=== PATIENT | male | born 1960 | race Caucasian/White ===

== ENCOUNTER 2021-02-05 12:14 | Observation (INO) | payer MEDICARE, BC ==
--- NOTE | 2021-02-05 12:57 | EDM.PDOC ---
ED HPI GENERAL MEDICAL PROBLEM - General Chief Complaint: Respiratory Problem Stated Complaint: SOB Time Seen by Provider: 02/05/21 12:40 Source of Information: Reports: Patient, Old Records, RN History Limitations: Reports: No Limitations - History of Present Illness INITIAL COMMENTS - FREE TEXT/NARRATIVE: 60 yo male is referred to the ER from the local [facility] for chest pressure and DORSEY. Sx's for a few days. No calf pain or LE edema. No cough or fever. No pHx of CAD or PE. Does have myesthenia gravis and is currently having his prednisone tapered. Has anxiety. Onset: Gradual Duration: Day(s):, Getting Worse Location: Reports: Chest Quality: Reports: Pressure Severity: Mild Improves with: Reports: Rest Worsens with: Reports: Movement (exertion) Context: Reports: Other (See HPI) Associated Symptoms: Reports: Chest Pain, Shortness of Breath (with exertion) Treatments TRA[employer]ER [employer]ER: Reports: Other (see below) (none) - Related Data Allergies Allergy/AdvReac Type Severity Reaction Status Date / Time No Known Allergies Allergy Verified 02/05/21 12:37 Home Meds: Home Meds Multivitamin with Minerals [Multiple Vitamin] 1 tab PO DAILY 08/25/13 [History] [place]-3 Fatty Acids [[place]-3] 1,000 mg PO DAILY 08/25/13 [History] PARoxetine [Paxil] 10 mg PO DAILY 08/25/13 [History] PEG 400/Propylene Glycol [Systane 0.4-0.3%] 1 drop EYEBOTH BID PRN 08/25/13 [History] Urea [Urea 40% Crm] 28.35 gm TOP DAILY 08/25/13 [History] atorvaSTATin [Lipitor] 10 mg PO BEDTIME 08/25/13 [History] ALPRAZolam [Xanax] 1 mg PO BID PRN 09/11/16 [History] traZODone 50 mg PO BEDTIME 09/11/16 [History] Pyridostigmine [place] 60 mg PO DAILY 02/05/21 [History] predniSONE [Prednisone] 25 mg PO DAILY 02/05/21 [History] Social & Family History - Tobacco Use Tobacco Use Status *Q: Never Tobacco User - Recreational Drug Use Recreational Drug Use: No ED ROS GENERAL - Review of Systems Review Of Systems: See Below Constitutional: Reports: No Symptoms. Denies: Fever HEENT: Reports: No Symptoms Respiratory: Reports: No Symptoms Cardiovascular: Reports: Chest Pain (pressure anteriorly), Dyspnea on Exertion. Denies: Edema, Lightheadedness, Orthopnea, Palpitations GI/Abdominal: Denies: Black Stool, Bloody Stool, Hematemesis, Hematochezia, Melena, Nausea : Reports: No Symptoms, Other (urine not dark) Musculoskeletal: Reports: No Symptoms Skin: Denies: Diaphoresis ED EXAM, GENERAL - Physical Exam Exam: See Below Exam Limited By: No Limitations General Appearance: Alert, WD/WN, No Apparent Distress Eye Exam: Bilateral Eye: Normal Inspection (no conjunctival pallor) Ears: Normal External Exam, Normal Canal, Hearing Grossly Normal Ear Exam: Bilateral Ear: Auricle Normal, Canal Normal Nose: Normal Inspection, No Blood Throat/Mouth: Normal Inspection, Normal Lips, Normal Oropharynx, Normal Voice, No Airway Compromise Head: Atraumatic, Normocephalic Neck: Normal Inspection Respiratory/Chest: No Respiratory Distress, Lungs Clear, Normal Breath Sounds, No Accessory Muscle Use, Chest Non-Tender Cardiovascular: Regular Rate, Rhythm, No Edema. No: Diastolic Murmur, Systolic Murmur GI/Abdominal: Soft, Non-Tender Back Exam: Normal Inspection. No: CVA Tenderness (R), CVA Tenderness (L) Extremities: Normal Inspection, Normal Range of Motion, Non-Tender, No Pedal Edema Neurological: Alert, Oriented, CN II-XII Intact, Normal Cognition, No Motor/Sensory Deficits Psychiatric: Normal Affect, Normal Mood Skin Exam: Warm, Dry, Intact, Normal Color, No Rash #1 Interpretation EKG Date: 02/05/21 Time: 13:15 Rhythm: NSR Rate (Beats/Min): 77 [place]: Normal P-Wave: Present QRS: Normal ST-T: Normal QT: Normal Comparison: NA - No Prior EKG Course - Vital Signs Text/Narrative:: Dr. Raza called @ 1428h Last Recorded V/S: Last Vital Signs Temp 36.2 C 02/05/21 12:36 Pulse 96 02/05/21 16:48 Resp 18 02/05/21 14:56 BP 106/82 02/05/21 14:56 Pulse Ox 98 02/05/21 16:48 - Orders/Labs/Meds Orders: Active Orders 24 hr Category Date Time Status Iopamidol [Isovue-370 (76%)] Med 02/05/21 14:15 Active 100 ml IV . DIRECTED Sodium Chloride 0.9% [Saline Flush] Med 02/05/21 13:38 Active 10 ml FLUSH ASDIRECTED PRN Sodium Chloride 0.9% [Saline Flush] Med 02/05/21 14:01 Active 10 ml FLUSH ONETIME PRN Saline Lock Insert [OM.PC] Routine Oth 02/05/21 13:38 Ordered EKG 12 Lead [EK] Routine Ther 02/05/21 12:51 Ordered Medication Orders Iopamidol (Iopamidol 755 Mg/Ml 100 Ml Bottle) 100 ml IV . DIRECTED [facility] Last Admin: 02/05/21 14:21 Dose: 100 ml Documented by: ILYA Sodium Chloride (Sodium Chloride 0.9% 10 Ml Syringe) 10 ml FLUSH ASDIRECTED PRN PRN Reason: Keep Vein Open Last Admin: 02/05/21 13:44 Dose: 10 ml Documented by: CORBIN Sodium Chloride (Sodium Chloride 0.9% 10 Ml Syringe) 10 ml FLUSH ONETIME PRN PRN Reason: PER RADIOLOGY PROTOCOL Last Admin: 02/05/21 14:20 Dose: 10 ml Documented by: ILYA Labs: Laboratory Tests 02/05/21 02/05/21 02/05/21 Range/Units 12:54 12:54 13:08 D-Dimer, Quantitative 2430.30 H (0.0-500.0) ng/mL Sodium (140-148) mmol/L Potassium (3.6-5.2) mmol/L Chloride (100-108) mmol/L Carbon Dioxide (21-32) mmol/L Anion Gap (5.0-14.0) mmol/L BUN (7-18) mg/dL Creatinine (0.8-1.3) mg/dL Est Cr Clr Drug Dosing mL/min Estimated GFR (MDRD) (>60) Glucose (74-106) mg/dL Calcium (8.5-10.1) mg/dL Troponin I < 0.017 (0.000-0.056) ng/mL SARS-CoV-2 RNA (RONNY) Negative (NEGATIVE) 02/05/21 Range/Units 13:39 D-Dimer, Quantitative (0.0-500.0) ng/mL Sodium 139 L (140-148) mmol/L Potassium 4.4 (3.6-5.2) mmol/L Chloride 103 (100-108) mmol/L Carbon Dioxide 26 (21-32) mmol/L Anion Gap 14.4 H (5.0-14.0) mmol/L BUN 14 (7-18) mg/dL Creatinine 1.0 (0.8-1.3) mg/dL Est Cr Clr Drug Dosing 91.33 mL/min Estimated GFR (MDRD) > 60 (>60) Glucose 143 H (74-106) mg/dL Calcium 8.9 (8.5-10.1) mg/dL Troponin I (0.000-0.056) ng/mL SARS-CoV-2 RNA (RONNY) (NEGATIVE) Meds: Medications Generic Name Dose Route Start Last Admin Trade Name Freq PRN Reason Stop Dose Admin Iopamidol 100 ml 02/05/21 14:15 02/05/21 14:21 Iopamidol 755 Mg/Ml 100 Ml Bottle IV 100 ml . DIRECTED MAL Administration Sodium Chloride 10 ml 02/05/21 13:38 02/05/21 13:44 Sodium Chloride 0.9% 10 Ml Syringe FLUSH 10 ml ASDIRECTED PRN Administration Keep Vein Open Sodium Chloride 10 ml 02/05/21 14:01 02/05/21 14:20 Sodium Chloride 0.9% 10 Ml Syringe FLUSH 10 ml ONETIME PRN Administration PER RADIOLOGY PROTOCOL Discontinued Medications Generic Name Dose Route Start Last Admin Trade Name Freq PRN Reason Stop Dose Admin Sodium Chloride 100 mls @ 3 mls/sec 02/05/21 14:01 02/05/21 14:20 Normal Saline IV 02/05/21 14:02 3 mls/sec ONETIME ONE Administration - Radiology Interpretation Free Text/Narrative:: Angio Chest- Departure - Departure Time of Disposition: 16:15 Disposition: Admitted As Inpatient 66 Condition: Fair Clinical Impression: DORSEY (dyspnea on exertion) Pulmonary emboli Qualifiers: Pulmonary embolism type: multiple subsegmental (without acute cor pulmonale) Qualified Code(s): I26.94 - Multiple subsegmental pulmonary emboli without acute cor pulmonale - Discharge Information *PRESCRIPTION DRUG MONITORING PROGRAM REVIEWED*: Not Applicable *COPY OF PRESCRIPTION DRUG MONITORING REPORT IN PATIENT ASMITA: Not Applicable Referrals: PCP,None [Primary Care Provider] - Forms: ED Department Discharge Sepsis Event Note (ED) - Evaluation Sepsis Screening Result: No Definite Risk - Focused Exam Vital Signs: Vital Signs Temp Pulse Resp BP Pulse Ox 02/05/21 16:48 96 98 02/05/21 14:56 81 18 106/82 96 02/05/21 12:36 36.2 C 83 18 122/92 H 97 02/05/21 12:33 36.2 C 83 18 122/92 H 97 - My Orders Last 24 Hours: My Active Orders 02/05/21 12:51 EKG 12 Lead [EK] Routine 02/05/21 13:38 Sodium Chloride 0.9% [Saline Flush] 10 ml FLUSH ASDIRECTED PRN Saline Lock Insert [OM.PC] Routine 02/05/21 14:01 Sodium Chloride 0.9% [Saline Flush] 10 ml FLUSH ONETIME PRN 02/05/21 14:15 Iopamidol [Isovue-370 (76%)] 100 ml IV . DIRECTED - Assessment/Plan Last 24 Hours: My Active Orders 02/05/21 12:51 EKG 12 Lead [EK] Routine 02/05/21 13:38 Sodium Chloride 0.9% [Saline Flush] 10 ml FLUSH ASDIRECTED PRN Saline Lock Insert [OM.PC] Routine 02/05/21 14:01 Sodium Chloride 0.9% [Saline Flush] 10 ml FLUSH ONETIME PRN 02/05/21 14:15 Iopamidol [Isovue-370 (76%)] 100 ml IV . DIRECTED
[2021-02-05] MEDS ORDERED: Sodium Chloride 0.9% 10 ML Syringe FLUSH PRN ×2 (13:38→14:01)
[2021-02-05] MEDS ORDERED: Sodium Chloride 0.9% 100 ML IV ONE (14:01)
[2021-02-05] MEDS ORDERED: Iopamidol 755 Mg/ML 100 ML Bottle IV SCH (14:15)
--- NOTE | 2021-02-05 14:37 | CT ---
Ang Chest CLINICAL HISTORY: DORSEY, elevated d-dimer TECHNIQUE: Thin section axial contiguous tomographic sections were taken through the chest after bolus IV iodinated contrast administration. Coronal and sagittal images were reconstructed. Auto dosage reduction and iterative reconstruction techniques employed. FINDINGS: There are moderate size filling defects in the distal right main pulmonary artery with multiple filling defects in the lower lobe and middle lobe branches. There are some emboli in the right upper lobe distribution. Multiple filling defects are seen in the left lung to a lesser degree. There is a 3 mm nodule in the right upper lobe. There is a 7 mm nodule within the right upper lobe on image #42. This is noncalcified. No infiltrates are seen IMPRESSION: Multiple pulmonary emboli right greater than left 7 mm right upper lobe pulmonary nodule. Follow-up using Fleischner Society criteria recommended FLEISCHNER CRITERIA (2017) Incidental Pulmonary Nodule Follow-up SOLID NODULES: Nodule size <6 mm -single and multiple nodules in low risk patient: no routine follow-up -single and multiple nodules in high risk patient: optional CT at 12 months Nodule size 6-8 mm -single nodule in low risk patient: CT at 6-12 months, then consider CT at 18-24 months -multiple nodules in low risk patient: CT at 3-6 months, then consider CT at 18-24 months -single nodule in high risk patient: CT at 6-12 months, then CT at 18-24 months -multiple nodules in high risk patient: CT at 3-6 months, then CT at 18-24 months Nodule size >8 mm -single nodule in both low and high risk patient: consider CT, PET/CT, or tissue sampling at 3 months -multiple nodules in low risk patient: CT at 3-6 months, then consider CT at 18-24 months -multiple nodules in high risk patient: CT at 3-6 months, then CT at 18-24 months
[2021-02-05] MEDS ORDERED: Enoxaparin 120 MG/0.8 ML Syringe SUBCUT STA (17:33)
--- NOTE | 2021-02-05 20:22 | PCM.HP.2 ---
H&P History of Present Illness - General Date of Service: 02/05/21 Admit Problem/Dx: Admission Diagnosis/Problem Admission Diagnosis/Problem Pulmonary embolism Source of Information: Patient History Limitations: Reports: No Limitations - History of Present Illness Initial Comments - Free Text/Narative: Mr. Madera is a 60-year-old male with a past medical history for ocular myasthenia gravis who presents after 1 week of dyspnea on exertion. He states that about a week ago he went to run up a hill he normally runs up and was more short of breath than usual. Since that time he has noticed increasing dyspnea and occasional chest pain. He does not have a history of blood clot. He is currently being treated for myasthenia gravis with prednisone and pyridostigmine. About 2 weeks ago his doctor did start decreasing his prednisone dose down to 25 mg daily. He denies a known and familial history of cancer. He states he does get colonoscopies but might be due for one currently. He drinks 2-3 beers per day and has for his "whole life". In the ED he had a CT PE done which showed bilateral PEs and 2 incidental lung nodules one measuring 7 mm the other measuring 3 mm. He was getting dyspneic with conversation however at rest had no symptoms.his labs were significant for WBC 11.5, hemoglobin 17.0, platelet count 148, D-dimer two 2430.3, sodium 139. - Related Data Allergies/Adverse Reactions: Allergies Allergy/AdvReac Type Severity Reaction Status Date / Time No Known Allergies Allergy Verified 02/05/21 12:37 Home Medications: Home Meds Multivitamin with Minerals [Multiple Vitamin] 1 tab PO DAILY 08/25/13 [History] [place]-3 Fatty Acids [[place]-3] 1,000 mg PO DAILY 08/25/13 [History] PARoxetine [Paxil] 10 mg PO DAILY 08/25/13 [History] PEG 400/Propylene Glycol [Systane 0.4-0.3%] 1 drop EYEBOTH BID PRN 08/25/13 [History] Urea [Urea 40% Crm] 28.35 gm TOP DAILY 08/25/13 [History] atorvaSTATin [Lipitor] 10 mg PO BEDTIME 08/25/13 [History] ALPRAZolam [Xanax] 1 mg PO BID PRN 09/11/16 [History] traZODone 50 mg PO BEDTIME 09/11/16 [History] Pyridostigmine [place] 60 mg PO DAILY 02/05/21 [History] predniSONE [Prednisone] 25 mg PO DAILY 02/05/21 [History] Past Medical History Neurological History: Reports: Other (See Below) Other Neuro History: ocular myesthenia gravis - Past Surgical History Neurological Surgical History: Reports: None Social & Family History - Tobacco Use Tobacco Use Status *Q: Never Tobacco User Second Hand Smoke Exposure: No - Caffeine Use Caffeine Use: Reports: Coffee Other Caffeine Use: 1 cup per day - Alcohol Use Days Per Week of Alcohol Use: 7 Number of Drinks Per Day: 3 Total Drinks Per Week: 21 Date of Last Drink: 02/01/21 Time of Last Drink: 21:00 - Recreational Drug Use Recreational Drug Use: No H&P Review of Systems - Review of Systems: Review Of Systems: Comprehensive ROS is negative, except as noted in HPI. Exam - Exam Exam: See Below - Vital Signs Vital Signs: Last Vital Signs Temp 98.0 F 02/05/21 19:53 Pulse 83 02/05/21 19:53 Resp 18 02/05/21 19:53 BP 116/88 02/05/21 19:53 Pulse Ox 98 02/05/21 19:53 Weight: 240 lb 8.389 oz - Exam General: Alert, Oriented, Cooperative HEENT: Conjunctiva Clear, EOMI, Hearing Intact, Mucosa Moist & [place]: Supple, Trachea Midline Lungs: Clear to Auscultation, Other (Dyspnea with conversation) Cardiovascular: Regular Rate, Regular Rhythm GI/Abdominal Exam: Normal Bowel Sounds, Soft, Non-Tender, No Distention Extremities: Normal Inspection, No Pedal Edema Skin: Warm, Dry, Intact Neuro Extensive - Mental Status: Alert, Oriented x3, Normal Mood/Affect, Normal Cognition, Memory Intact Psychiatric: Alert, Normal Affect, Normal Mood - Patient Data Lab Results Last 24 hrs: Laboratory Results - last 24 hr 02/05/21 02/05/21 02/05/21 Range/Units 12:54 12:54 12:54 WBC 11.5 H (4.5-11.0) K/uL RBC 5.66 (4.30-5.90) M/uL Hgb 17.0 H (12.0-15.0) g/dL Hct 51.1 (40.0-54.0) % MCV 90 (80-98) fL MCH 30 (27-31) pg MCHC 33 (32-36) % Plt Count 148 L (150-400) K/uL D-Dimer, Quantitative 2430.30 H (0.0-500.0) ng/mL Sodium (140-148) mmol/L Potassium (3.6-5.2) mmol/L Chloride (100-108) mmol/L Carbon Dioxide (21-32) mmol/L Anion Gap (5.0-14.0) mmol/L BUN (7-18) mg/dL Creatinine (0.8-1.3) mg/dL Est Cr Clr Drug Dosing mL/min Estimated GFR (MDRD) (>60) Glucose (74-106) mg/dL Calcium (8.5-10.1) mg/dL Troponin I < 0.017 (0.000-0.056) ng/mL SARS-CoV-2 RNA (RONNY) (NEGATIVE) 02/05/21 02/05/21 Range/Units 13:08 13:39 WBC (4.5-11.0) K/uL RBC (4.30-5.90) M/uL Hgb (12.0-15.0) g/dL Hct (40.0-54.0) % MCV (80-98) fL MCH (27-31) pg MCHC (32-36) % Plt Count (150-400) K/uL D-Dimer, Quantitative (0.0-500.0) ng/mL Sodium 139 L (140-148) mmol/L Potassium 4.4 (3.6-5.2) mmol/L Chloride 103 (100-108) mmol/L Carbon Dioxide 26 (21-32) mmol/L Anion Gap 14.4 H (5.0-14.0) mmol/L BUN 14 (7-18) mg/dL Creatinine 1.0 (0.8-1.3) mg/dL Est Cr Clr Drug Dosing 91.33 mL/min Estimated GFR (MDRD) > 60 (>60) Glucose 143 H (74-106) mg/dL Calcium 8.9 (8.5-10.1) mg/dL Troponin I (0.000-0.056) ng/mL SARS-CoV-2 RNA (RONNY) Negative (NEGATIVE) Result Diagrams: 02/05/21 12:54 02/05/21 13:39 Sepsis Event Note - Evaluation Sepsis Screening Result: No Definite Risk - Focused Exam Vital Signs: Vital Signs Temp Temp Pulse Resp BP BP Pulse Ox 02/05/21 19:53 98.0 F 83 18 116/88 98 02/05/21 16:48 96 98 02/05/21 14:56 81 18 106/82 96 02/05/21 12:36 97.2 F 83 18 122/92 H 97 02/05/21 12:33 97.2 F 83 18 122/92 H 97 - Problem List (1) Pulmonary emboli SNOMED Code(s): 86214302 ICD Code: I26.99 - OTHER PULMONARY EMBOLISM WITHOUT ACUTE COR PULMONALE Status: Acute Current Visit: Yes Qualifiers: Pulmonary embolism type: multiple subsegmental (without acute cor pulmonale) Qualified Code(s): I26.94 - Multiple subsegmental pulmonary emboli without acute cor pulmonale (2) Myasthenia gravis SNOMED Code(s): 04917904 ICD Code: G70.00 - MYASTHENIA GRAVIS WITHOUT (ACUTE) EXACERBATION Status: Acute Current Visit: Yes Problem List Initiated/Reviewed/Updated: Yes Orders Last 24hrs: Active Orders 24 hr Category Date Time Status Admission Status [Patient Status] [ADT] Routine ADT 02/05/21 18:36 Active Vaccine to be Administered/Admin Charge [RC] ASDIRECTED Care 02/05/21 20:12 Active Iopamidol [Isovue-370 (76%)] Med 02/05/21 14:15 Active 100 ml IV . DIRECTED Pharmacy to Dose - InFluenza V [Pharmacy to Dose - Med 02/05/21 20:10 Once InFluenza Vaccine] 1 each IM ONETIME ONE Sodium Chloride 0.9% [Saline Flush] Med 02/05/21 13:38 Active 10 ml FLUSH ASDIRECTED PRN Sodium Chloride 0.9% [Saline Flush] Med 02/05/21 14:01 Active 10 ml FLUSH ONETIME PRN Saline Lock Insert [OM.PC] Routine Oth 02/05/21 13:38 Ordered EKG 12 Lead [EK] Routine Ther 02/05/21 12:51 Ordered Medication Orders Influenza Virus Vaccine (Pharmacy To Dose - Influenza Vaccine) 1 each IM ONETIME ONE Stop: 02/05/21 20:11 Iopamidol (Iopamidol 755 Mg/Ml 100 Ml Bottle) 100 ml IV . DIRECTED MAL Last Admin: 02/05/21 14:21 Dose: 100 ml Documented by: ILYA Sodium Chloride (Sodium Chloride 0.9% 10 Ml Syringe) 10 ml FLUSH ASDIRECTED PRN PRN Reason: Keep Vein Open Last Admin: 02/05/21 13:44 Dose: 10 ml Documented by: CORBIN Sodium Chloride (Sodium Chloride 0.9% 10 Ml Syringe) 10 ml FLUSH ONETIME PRN PRN Reason: PER RADIOLOGY PROTOCOL Last Admin: 02/05/21 14:20 Dose: 10 ml Documented by: ILYA Assessment/Plan Comment:: Pulmonary embolism bilateral -Start apixaban 10 mg twice a day for 7 days then continue with 5 mg twice a day thereafter -As this is an unprovoked PE he will need anticoagulation for at least 3 months if not longer and will need to discuss that with him and his PCP -Will monitor his oxygenation and cardiac parameters Myasthenia gravis-ocular -We will continue home dose of pyridostigmine and prednisone Incidental pulmonary nodules -Will need follow-up imaging with a CT chest in 3 to 6 months based on the Fleischner Society criteria Depression/anxiety -Continue home trazodone and paroxetine Hyperlipidemia -Atorvastatin 10 mg at bedtime Obesity class I -BMI 30 Plan: We will monitor for his dyspnea and start on anticoagulation. VTE prophylaxis: Started on anticoagulation for PE GI prophylaxis: Not indicated Diet: Regular diet Mireya Raza DO
[2021-02-05] MEDS ORDERED: Sodium Chloride 0.9% 1,000 ML IV SCH (20:45)
[2021-02-05] MEDS ORDERED: TRAZODONE 50 MG PO SCH (21:00)
[2021-02-05] MEDS ORDERED: Famotidine 20 MG Tab PO SCH (21:33)
[2021-02-05] MEDS ORDERED: LIFITEGRAST EYEBOTH SCH (21:34)
[2021-02-05] MEDS ORDERED: Famotidine 20 MG Tab *PT OWN MED PO SCH (21:45)
[2021-02-06] MEDS ORDERED: Apixaban 5 MG Tab PO SCH (06:00)
[2021-02-06] MEDS ORDERED: ALPRAZolam 0.5 MG Tab PO PRN (07:23)
[2021-02-06] MEDS ORDERED: predniSONE 5 MG **PTOM PO SCH (08:00)
[2021-02-06] MEDS ORDERED: REFRESH PLUS EYE EYEBOTH PRN (08:12)
[2021-02-06] MEDS ORDERED: Famotidine 20 MG Tab *PT OWN MED PO SCH (08:15)
[2021-02-06] MEDS ORDERED: LIFITEGRAST EYEBOTH SCH (08:16)
[2021-02-06] MEDS ORDERED: FISH OIL PO SCH (09:00)
[2021-02-06] MEDS ORDERED: PAROXETINE 10 MG PO SCH (09:00)
[2021-02-06] MEDS ORDERED: OMEGA PO SCH (09:00)
[2021-02-06] MEDS ORDERED: FATTY ACIDS PO SCH (09:00)
[2021-02-06] MEDS ORDERED: PYRIDOSTIGMINE 60 MG PO PRN (09:00)
[2021-02-06] MEDS ORDERED: Multivitamins with Iron/Calcium/Folic Acid/Minerals **PTOM PO SCH (09:00)
[2021-02-06] MEDS ORDERED: UREA TOP SCH (09:00)
[2021-02-06] MEDS ORDERED: atorvaSTATin 20 MG Tab PO SCH (21:00)
[2021-02-06] MEDS ORDERED: TRAZODONE 50 MG PO SCH (21:00)
== END 2021-02-06 15:00 | disposition home or self-care (01) ==
LOC: JP.ED 12:14 → JP.MS 18:36
PROVIDERS: ADMIT Internal Medicine; ATTEND Internal Medicine
DX: I26.94 Multiple subsegmental thrombotic pulmonary emboli without acute cor pulmonale (principal); G70.00 Myasthenia gravis without (acute) exacerbation; E78.5 Hyperlipidemia, unspecified; E66.9 Obesity, unspecified; Z68.30 Body mass index [BMI] 30.0-30.9, adult; Z79.899 Other long term (current) drug therapy; Z20.822 Contact with and (suspected) exposure to COVID-19
CPT/HCPCS: 36415; 71275; 80048; 82668; 84484; 85027; 85379; 93005; 96372; 99285; A9270; G0378; J1650; J7030; J7512; Q9967; U0002

== ENCOUNTER 2022-03-15 09:36 | Day surgery (SDC) | payer MEDICARE, BC ==
[~2022-03-15 09:36] MED LIST: Midazolam 1 MG/ML 2 ML SDV ONE; Propofol 200 MG/20 ML SDV ONE; fentaNYL 50 MCG/ML SDV ONE
[2022-03-15] MEDS ORDERED: Lactated Ringers 1,000 ML IV SCH (10:24)
[2022-03-15] MEDS ORDERED: Propofol 200 MG/20 ML SDV ONE (11:10)
== END 2022-03-15 12:35 | disposition home or self-care (01) ==
LOC: JP.SDS 09:36
PROVIDERS: ATTEND Student in an Organized Health Care Education/Training Program
DX: Z12.11 Encounter for screening for malignant neoplasm of colon (principal); Z88.1 Allergy status to other antibiotic agents; Z88.6 Allergy status to analgesic agent
CPT/HCPCS: G0121; J2250; J2704; J3010; J7120

== ENCOUNTER 2023-12-07 06:37 | Emergency (ER) | payer MEDICARE, BC ==
[2023-12-07] MEDS: Sodium Chloride 0.9% 1,000 ML IV ONE (07:30)
[2023-12-07] MEDS: Nitroglycerin 0.4 MG Tab.SL SL PRN (07:38)
[2023-12-07 07:47] LABS: BASOPHILS PERCENT AUTO 0.1 % (0.1-1.3); EOSINOPHILS ABSOLUTE AUTO 0.05 K/uL (0.00-0.40); EOSINOPHILS PERCENT AUTO 0.6 % (0.0-5.4); HEMATOCRIT 46.7 % (38.4-49.7); HEMOGLOBIN 16.7 g/dL (12.9-16.9); IMMATURE GRAN ABSOLUTE AUTO 0.06 K/uL (0.00-0.23); IMMATURE GRAN PERCENT AUTO 0.7 % (0.0-0.7); LYMPHOCYTES ABSOLUTE AUTO 0.84 K/uL (0.8-3.3); LYMPHOCYTES PERCENT AUTO 10.2 % (11.4-47.7); MEAN CORPUSCULAR HEMOGLOBIN 33.4 pg (31.6-35.5); MEAN CORPUSCULAR HGB CONC 35.8 g/dL (31.6-35.5); MEAN CORPUSCULAR VOLUME 93.4 fL (81.4-99.0); MONOCYTES ABSOLUTE AUTO 0.84 K/uL (0.20-0.90); MONOCYTES PERCENT AUTO 10.2 % (3.3-12.6); NEUTROPHILS ABSOLUTE AUTO 6.45 K/uL (1.0-7.6); NEUTROPHILS PERCENT AUTO 78.2 % (40.0-78.1); PLATELET COUNT,PLT 143 K/uL (130-375); WHITE BLOOD CELL COUNT,WBC 8.3 K/uL (3.2-11.0)
[2023-12-07] MEDS: Aspirin 81 MG Tab.Chew PO ONE (07:47)
[2023-12-07 07:48] LABS: BASOPHILS ABSOLUTE AUTO 0.01 K/uL (0.00-0.10)
[2023-12-07] MEDS: Ticagrelor 90 MG Tab PO ONE (07:49)
[2023-12-07 07:56] LABS: PTT,PARTIAL THROMBOPLSTIN TIME 25.8 sec (21.8-27.3)
[2023-12-07 07:57] LABS: A/G RATIO 0.9 (1.2-2.2); ALANINE AMINOTRANSFERASE,ALT 38 U/L (12-78); ALBUMIN 3.4 g/dL (3.4-5.0); ALKALINE PHOSPHATASE 70 U/L (46-116); ASPARTATE AMNIOTRANSFERASE,AST 24 U/L (15-37); BLOOD UREA NITROGEN,BUN 10 mg/dL (7-18); CALCIUM 8.9 mg/dL (8.5-10.1); CARBON DIOXIDE,CO2 28 mmol/L (21-32); CHLORIDE,CL 101 mmol/L (100-108); CREATININE 1.1 mg/dL (0.8-1.3); ESTIMATED GFR 75 mL/min (>60); GLUCOSE RANDOM 145 mg/dL (74-106); MAGNESIUM 1.9 mg/dL (1.8-2.4); PHOSPHORUS 2.7 mg/dL (2.5-4.9); PRO B-TYPE NATRIUR PEPT,BNPPRO 780 pg/mL (5-125); SODIUM,NA 139 mmol/L (140-148); TROPONIN I HIGH SENSITIVITY 365.4 pg/mL (<=60.3)
[2023-12-07 07:58] LABS: C-REACTIVE PROTEIN 1.46 mg/dL (<0.50)
[2023-12-07] MEDS ORDERED: Heparin Sodium/D5W 25,000 UNITS/500 ML BAG IV SCH (08:00)
[2023-12-07] MEDS: Heparin Sodium 5,000 Units/ML Vial IVPUSH ONE (08:16)
[2023-12-07] MEDS: Heparin Sodium/D5W 25,000 UNITS/500 ML BAG IV SCH (08:23)
[2023-12-07 08:57] LABS: APPEARANCE,URINE CLEAR (CLEAR); BILIRUBIN,URINE NEGATIVE (NEGATIVE); COLOR,URINE YELLOW (YELLOW); GLUCOSE,URINE NEGATIVE (NEGATIVE); KETONES,URINE TRACE mg/dL (NEGATIVE); LEUKOCYTE ESTERASE,URINE NEGATIVE (NEGATIVE); NITRITE,URINE NEGATIVE (NEGATIVE); OCCULT BLOOD,URINE TRACE-INTACT (NEGATIVE); PH,URINE 5.5 (5.0-8.0); PROTEIN,URINE NEGATIVE (NEGATIVE); UROBILINOGEN,URINE 0.2 EU/dL (0.2-1.0)
[2023-12-07 09:04] LABS: AMORPHOUS SEDIMENT,URINE NOT SEEN; AMPHETAMINES SCREEN, URINE NEGATIVE (NEGATIVE); BACTERIA,URINE NOT SEEN; BARBITURATE SCREEN,URINE NEGATIVE (NEGATIVE); BENZODIAZEPINES SCREEN,URINE PRESUMPTIVE POSITIVE (NEGATIVE); EPITHELIAL CELLS,URINE NOT SEEN; METHADONE SCREEN, URINE NEGATIVE (NEGATIVE); METHAMPHETAMINES SCREEN, URINE NEGATIVE (NEGATIVE); MUCUS,URINE FEW; OXYCODONE SCREEN,URINE NEGATIVE (NEGATIVE); PROPOXYPHENE SCREEN,URINE NEGATIVE (NEGATIVE); RBC,URINE 0-5 (0-5); THC SCREEN,URINE 50 NG/ML NEGATIVE (NEGATIVE); WBC,URINE NOT SEEN (0-5)
[2023-12-07] MEDS: Sodium Chloride 0.9% 100 ML IV ONE (10:13)
[2023-12-07] MEDS: Sodium Chloride 0.9% 10 ML Syringe FLUSH PRN (10:14)
[2023-12-07] MEDS: Iopamidol 755 Mg/ML 100 ML Bottle IV SCH (10:14)
== END 2023-12-07 11:44 ==
LOC: JP.ED 06:37
DX: I26.92 Saddle embolus of pulmonary artery without acute cor pulmonale (principal); E66.9 Obesity, unspecified; Z86.16 Personal history of COVID-19; Z79.899 Other long term (current) drug therapy; Z79.52 Long term (current) use of systemic steroids; Z88.5 Allergy status to narcotic agent; Z88.1 Allergy status to other antibiotic agents; Z68.32 Body mass index [BMI] 32.0-32.9, adult
CPT/HCPCS: 36415; 71045; 71275; 80053; 80305; 81001; 83605; 83735; 83880; 84100; 84484; 85025; 85379; 85610; 85730; 86140; 93005; 96365; 96366; 99285; A9270; J1644; J3490; J7030; Q9967